=== PATIENT | male | born 1995 | race Caucasian/White ===

== ENCOUNTER 2023-05-04 13:39 | Emergency (ER) | payer BC ==
[2023-05-04] MEDS ORDERED: Ondansetron PF 4 MG/2 ML Vial ONE (16:02)
[2023-05-04] MEDS ORDERED: Ketorolac Tromethamine 30 MG/ML VIAL ONE (16:47)
[2023-05-04 17:00] LABS: SARS-CoV-2 NAA Rapid Test Not Detected (NotDetected)
== END 2023-05-04 17:03 | disposition home or self-care (01) ==
LOC: ERS 13:39
DX: R11.2 Nausea with vomiting, unspecified (principal); R19.7 Diarrhea, unspecified
CPT/HCPCS: 96361; 96374; 96375; J1885; J2405